=== PATIENT | male | born 1995 | race Caucasian/White ===

== ENCOUNTER 2017-01-15 20:19 | Emergency (ER) | payer MEDICAID, OTHER ==
[~2017-01-15] VITALS: Ht 162.6 cm; Wt 58.5 kg
[2017-01-15 20:22] VITALS: Ht 162.6 cm; Wt 58.5 kg
[2017-01-15 21:23] LABS: ABNORMAL IP MESSAGE 1; BASOPHILS % 0.2 % (0.0-2.0); EOSINOPHILS # 0.1 10^3/ul (0.0-0.5); EOSINOPHILS % 1.4 % (0.0-7.0); HEMATOCRIT 48.9 % (42.0-52.0); HEMOGLOBIN 15.6 g/dl (14.0-18.0); LYMPHOCYTES # 1.9 10^3/ul (0.8-2.9); LYMPHOCYTES % 29.6 % (15.0-51.0); MEAN CORPUSCULAR HGB CONC 31.9 g/dl (32.0-37.0); MEAN CORPUSCULAR VOLUME 90.9 fl (82.0-101.0); MEAN PLATELET VOLUME 12.8 fl (7.4-10.4); MONOCYTE # 0.4 10^3/ul (0.3-0.9); MONOCYTES % 6.8 % (0.0-11.0); NEUTROPHIL # 3.9 10^3/ul (1.6-7.5); NEUTROPHILS % 61.5 % (39.0-77.0); PLATELET COUNT 69 10^3/UL (140-415); POSITIVE DIFF @See below; RED BLOOD COUNT 5.38 10^6/ul (4.70-6.10); RED CELL DISTRIBUTION WIDTH 13.2 % (11.5-14.5); WHITE BLOOD COUNT 6.4 10^3/ul (4.8-10.8)
[2017-01-15 21:40] LABS: INR 0.95; PROTIME 12.7 Sec (12.2-14.2)
[2017-01-15 21:41] LABS: PARTIAL THROMBOPLASTIN TIME 29.5 Sec (25.0-35.0)
[2017-01-15 21:52] LABS: ALBUMIN 4.2 g/dl (3.3-4.9); ALBUMIN/GLOBULIN RATIO 1.4; BILIRUBIN,INDIRECT 0.6 mg/dl (0-1.1); BILIRUBIN,TOTAL 0.6 mg/dl (0.2-1.3); CALCIUM 9.2 mg/dl (8.4-10.2); CREATININE 0.76 mg/dl (0.61-1.24); POTASSIUM 4.6 mmol/L (3.5-5.1); TOTAL PROTEIN 7.2 g/dl (6.1-8.1)
--- NOTE | 2017-01-15 21:57 | ERD ---
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 Took it today. States that it stopped bleeding after 20 minutes. Denies bruising. Denies vomiting, diarrhea, headache, dizziness. ROS All systems reviewed and are negative except as per history of present illness. Allergies Allergies: Coded Allergies: No Known Allergy (Unverified , 01/15/17) PMhx/Soc Hx Miscellaneous Medical Probl: Yes (Gutierrez syndrome, thrombocytopenia, hearing loss) Hx Alcohol Use: No Hx Substance Use: No Hx Tobacco Use: No Smoking Status: Never smoker Physical Exam Vitals Vital Signs Date Time Temp Pulse Resp B/P Pulse Ox O2 Delivery O2 Flow Rate FiO2 01/15/17 20:22 97.7 87 20 129/87 98 Physical Exam GENERAL: well-nourished male. Appears in no acute distress. developmental delay HEAD: Normocephalic, atraumatic. EYES: Pupils are equally reactive bilaterally. EOMs grossly intact. No conjunctival erythema. ENT: Moist mucous membranes. No uvula deviation. No kissing tonsils. No exudates. crusting in nares. no bleeding in back of throat. NECK: Supple. No lymphadenopathy or thyromegaly. No meningismus. negative kernig. negative brudinski. LUNG: Clear to auscultation bilaterally. No rhonchi, wheezing, rales or coarse breath sounds. HEART: Regular rate and rhythm. No murmurs, rubs or gallops. BACK: No midline tenderness. Extremities: Equal pulses bilaterally. No peripheral clubbing, cyanosis or edema. No unilateral leg swelling. NEUROLOGIC: Alert and oriented. Moving all four extremities. 5/5 strength in all extremities. SKIN: Normal color. Warm and dry. No rashes or lesions. Capillary refill < 2 seconds Result Diagram: 01/15/17210501/15/172105 Results 24 hrs Laboratory Tests Test 01/15/17 21:06 White Blood Count 6.410^3/ul Red Blood Count 5.3810^6/ul Hemoglobin 15.6g/dl Hematocrit 48.9% Mean Corpuscular Volume 90.9fl Mean Corpuscular Hemoglobin 29.0pg Mean Corpuscular Hemoglobin Concent 31.9g/dl Red Cell Distribution Width 13.2% Platelet Count 6910^3/UL Mean Platelet Volume 12.8fl Neutrophils % 61.5% Lymphocytes % 29.6% Monocytes % 6.8% Eosinophils % 1.4% Basophils % 0.2% Nucleated Red Blood Cells % 0.0/100WBC Neutrophils # 3.910^3/ul Lymphocytes # 1.910^3/ul Monocytes # 0.410^3/ul Eosinophils # 0.110^3/ul Basophils # 0.010^3/ul Nucleated Red Blood Cells # 0.010^3/ul Prothrombin Time 12.7Sec Prothrombin Time Ratio 1.0 INR International Normalized Ratio 0.95 Activated Partial Thromboplast Time 29.5Sec Sodium Level 141mmol/L Potassium Level 4.6mmol/L Chloride Level 103mmol/L Carbon Dioxide Level 30mmol/L Anion Gap 13 Blood Urea Nitrogen 24mg/dl Creatinine 0.76mg/dl Glucose Level 124mg/dl Calcium Level 9.2mg/dl Total Bilirubin 0.6mg/dl Direct Bilirubin 0.00mg/dl Indirect Bilirubin 0.6mg/dl Aspartate Amino Transf (AST/SGOT) 25IU/L Alanine Aminotransferase (ALT/SGPT) 50IU/L Alkaline Phosphatase 68IU/L Total Protein 7.2g/dl Albumin 4.2g/dl Globulin 3.00g/dl Albumin/Globulin Ratio 1.40 Procedures/MDM ER COURSE: I kept the patient and/or family informed of laboratory and diagnostic imaging results throughout the emergency room course. MEDICAL DECISION MAKING: This is a 21 year old male who presents with nose bleeding x 30 mins. Vital signs were reviewed. Patient is afebrile. Patient is not hypoxic. Patient is not toxic or ill appearing. I consulte with my supervising physician Dr Last who advised me to order blood work. Patien'ts platelets are 79, with no white count. PT and PTT within normal limits. All labs discussed with Dr Last and patient is stable for outpatient therapy. He agrees with my medical decision making and disharge plans. Patient is hemodynamically stable with no active bleeding in the ED for over 1 hour. Low suspicion for anemia, posterior epistaxis, sepsis, electrolyte disturbance. DISCHARGE: At this time, patient is stable for discharge and outpatient management with no new complaints during the ER course. Patient was sent home wiht copy of laboratory studies. Patient will be discharged home with instructions to recheck for new or worsening symptoms such as fever, nausea, weakness, LOC and to follow up with primary care in the next 1-2 days. Patient was advised to return to the ER for any new or worsening symptoms. Plan was discussed and patient and/or family understands and agrees. Home instructions were given. Departure Diagnosis: Primary Impression: Epistaxis Additional Impressions: Thrombocytopenia Gutierrez Syndrome Condition: Stable MIESHA PINEDA PA-C Jan 15, 2017 21:57
== END 2017-01-15 22:39 | disposition home or self-care (01) ==
LOC: FTE 20:19
DX: R04.0 Epistaxis (principal); D69.6 Thrombocytopenia, unspecified; Q93.5 Other deletions of part of a chromosome
CPT/HCPCS: 80053; 85025; 85610; 85730; Z7502; 99283